=== PATIENT | male | born 1960 | race Hispanic/Latino ===

== ENCOUNTER 2019-05-12 08:56 | Outpatient (CLI) | payer OTHER ==
--- NOTE | 2019-05-12 10:06 | XRay Report ---
LEFT KNEE 2 VIEWS INDICATION: Left knee pain. COMPARISON: 02/19/2018 FINDINGS: Advanced tricompartmental degenerative changes again noted, greatest at the medial tibiofemoral ebony rtment. Collapse/depression along the medial tibial plateau appears slightly increased but does not a ppear acute. There is slight lateral subluxation of the tibial plateau with respect to the distal fem ur which is slightly increased as well. No acute, displaced fracture is seen. There is a small joint effusion. IMPRESSION: 1. 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 These findings have progressed since the prior exam from 2018. RIGHT ANKLE 2 VIEWS INDICATION: ankle pain. COMPARISON: No relevant prior imaging study available. FINDINGS: No acute, displaced fracture is seen. There is advanced osteoarthrosis at the tibiotalar articulation with [id number] appearance medially and subchondral sclerosis and cystlike change. There is slight tilt of the talar dome respect to the tibial plafond. IMPRESSION: 1. Advanced osteoarthrosis of the tibiotalar articulation, as above. Signer Name: Rahul Street MD Signed: 05/12/2019 10:02 AM Workstation Name: [id number]
--- NOTE | 2019-05-12 10:06 | XRay Report ---
LEFT KNEE 2 VIEWS INDICATION: Left knee pain. COMPARISON: 02/19/2018 FINDINGS: Advanced tricompartmental degenerative changes again noted, greatest at the medial tibiofemoral ebony rtment. Collapse/depression along the medial tibial plateau appears slightly increased but does not a ppear acute. There is slight lateral subluxation of the tibial plateau with respect to the distal fem ur which is slightly increased as well. No acute, displaced fracture is seen. There is a small joint effusion. IMPRESSION: 1. 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 These findings have progressed since the prior exam from 2018. RIGHT ANKLE 2 VIEWS INDICATION: ankle pain. COMPARISON: No relevant prior imaging study available. FINDINGS: No acute, displaced fracture is seen. There is advanced osteoarthrosis at the tibiotalar articulation with [id number] appearance medially and subchondral sclerosis and cystlike change. There is slight tilt of the talar dome respect to the tibial plafond. IMPRESSION: 1. Advanced osteoarthrosis of the tibiotalar articulation, as above. Signer Name: Rahul Street MD Signed: 05/12/2019 10:02 AM Workstation Name: [id number]
== END 2019-05-12 08:57 | disposition home or self-care (01) ==
LOC: XRAY 08:56
PROVIDERS: ATTEND Internal Medicine
DX: S83.142A Lateral subluxation of proximal end of tibia, left knee, initial encounter (principal); M17.12 Unilateral primary osteoarthritis, left knee; M19.071 Primary osteoarthritis, right ankle and foot; M25.462 Effusion, left knee; X58.XXXA Exposure to other specified factors, initial encounter; Y93.89 Activity, other specified; Y92.89 Other specified places as the place of occurrence of the external cause; Y99.8 Other external cause status

== ENCOUNTER 2020-06-11 10:32 | Outpatient (CLI) | payer OTHER ==
--- NOTE | 2020-06-11 12:21 | XRay Report ---
LEFT ANKLE AP AND LATERAL VIEWS INDICATION: LEFT ANKLE PAIN. COMPARISON: No relevant prior imaging study available. FINDINGS: No displaced fracture is seen. There is subtle linear sclerosis within the calcaneus which could be d ue to stress. This is of uncertain chronicity. Calcaneal enthesopathy is seen at the plantar fascia a ttachment. There is mild ankle/hindfoot degenerative change. No significant soft tissue swelling. IMPRESSION: 1. Subtle linear sclerosis in the calcaneus is of uncertain chronicity. This could be related to stre ss. 2. Additional incidental findings as above. Signer Name: Rahul Street MD Signed: 06/11/2020 12:16 PM Workstation Name: [id number]
--- NOTE | 2020-06-11 12:22 | XRay Report ---
CLINICAL DATA: LEFT HIP PAIN TECHNICAL DATA: Two views were obtained, AP pelvis and lateral FINDINGS: There is no acute fracture or dislocation. The visualized joint spaces are normal. IMPRESSION: No acute radiographic abnormality. Signer Name: Isaias Francisco MD Signed: 06/11/2020 12:18 PM Workstation Name: [id number]
--- NOTE | 2020-06-11 12:22 | XRay Report ---
Lumbar spine 3 views INDICATION: Low back pain IMPRESSION: Prominent disc osteophyte complex present at T12-L1. Mild neural foraminal stenosis prese nt at L5-S1 secondary to discogenic and facet arthropathy. Signer Name: Elias Hernandez MD Signed: 06/11/2020 12:18 PM Workstation Name: [id number]
== END 2020-06-11 10:33 | disposition home or self-care (01) ==
LOC: XRAY 10:32
PROVIDERS: ATTEND Internal Medicine
DX: M48.061 Spinal stenosis, lumbar region without neurogenic claudication (principal); M47.816 Spondylosis without myelopathy or radiculopathy, lumbar region; M25.78 Osteophyte, vertebrae; M19.072 Primary osteoarthritis, left ankle and foot; M25.552 Pain in left hip
CPT/HCPCS: 72100

== ENCOUNTER 2020-08-16 16:19 | Emergency (ER) | payer MEDICAID, OTHER ==
[2020-08-16 16:49] VITALS: BP 140/97
--- NOTE | 2020-08-16 18:04 | Emergency Department Report ---
ED ENT HPI - General Chief complaint: Sore Throat Stated complaint: THROAT INFECTION Time Seen by Provider: 08/16/20 18:01 Source: patient Mode of arrival: Ambulatory Limitations: No Limitations - History of Present Illness Initial comments: pt is a 59-year-old male presents emergency with complaints of a sore throat that began 3 days ago. He has associated discomfort with swallowing but is still able to swallow and tolerate his secretions. He reports that he also bit his tongue a couple of days ago. He denies any fever, nausea, vomiting, diarrhe a, shortness of breath. He denies any sick contacts. No past medical history. No allergies to medications. - Related Data Previous Rx's Medication Instructions Recorded Last Taken Type Acetaminophen/Codeine [Tylenol 1 tab PO Q6H PRN #12 tab 02/19/18 Unknown Rx /Codeine # 3 tab] Cyclobenzaprine [Flexeril] 10 mg PO TID PRN #30 tablet 02/19/18 Unknown Rx Menthol/Camphor [Volin [place] 1 applicatio TP QID PRN #1 tube 02/19/18 Unknown Rx Ointment] Naproxen 500 mg PO BID PRN #30 tablet 02/19/18 Unknown Rx Nystas/Diphen/Xyl Visc/Mylanta 30 ml MM Q4H PRN #300 ml 08/16/20 Unknown Rx [Magic Mouthwash] Allergies Allergy/AdvReac Type Severity Reaction Status Date / Time No Known Allergies Allergy Verified 08/16/20 16:45 ED Dental HPI - General Chief complaint: Sore Throat Stated complaint: THROAT INFECTION Time Seen by Provider: 08/16/20 18:01 Source: patient Mode of arrival: Ambulatory Limitations: No Limitations - Related Data Previous Rx's Medication Instructions Recorded Last Taken Type Acetaminophen/Codeine [Tylenol 1 tab PO Q6H PRN #12 tab 02/19/18 Unknown Rx /Codeine # 3 tab] Cyclobenzaprine [Flexeril] 10 mg PO TID PRN #30 tablet 02/19/18 Unknown Rx Menthol/Camphor [Volin [place] 1 applicatio TP QID PRN #1 tube 02/19/18 Unknown Rx Ointment] Naproxen 500 mg PO BID PRN #30 tablet 02/19/18 Unknown Rx Nystas/Diphen/Xyl Visc/Mylanta 30 ml MM Q4H PRN #300 ml 08/16/20 Unknown Rx [Magic Mouthwash] Allergies Allergy/AdvReac Type Severity Reaction Status Date / Time No Known Allergies Allergy Verified 08/16/20 16:45 ED Review of Systems ROS: Stated complaint: THROAT INFECTION Other details as noted in HPI Comment: All other systems reviewed and negative ED Past Medical Hx - Past Medical History Previous Medical History?: No - Surgical History Additional Surgical History: KNEE /ANKLE - Social History Smoking Status: Current Every Day Smoker Substance Use Type: None - Medications Home Medications: Home Medications Medication Instructions Recorded Confirmed Last Taken Type Acetaminophen/Codeine [Tylenol 1 tab PO Q6H PRN #12 tab 02/19/18 Unknown Rx /Codeine # 3 tab] Cyclobenzaprine [Flexeril] 10 mg PO TID PRN #30 tablet 02/19/18 Unknown Rx Menthol/Camphor [Volin [place] 1 applicatio TP QID PRN #1 tube 02/19/18 Unknown Rx Ointment] Naproxen 500 mg PO BID PRN #30 tablet 02/19/18 Unknown Rx Nystas/Diphen/Xyl Visc/Mylanta 30 ml MM Q4H PRN #300 ml 08/16/20 Unknown Rx [Magic Mouthwash] ED Physical Exam - General Limitations: No Limitations General appearance: alert, in no apparent distress - Head Head exam: Present: atraumatic, normocephalic - Eye Eye exam: Present: normal appearance - ENT ENT exam: Present: normal orophraynx, mucous membranes moist, TM's normal bilaterally, normal external ear exam, other (small shallow ulceration to the right lateral tongue ) - Respiratory Respiratory exam: Present: normal lung sounds bilaterally. Absent: respiratory distress, wheezes, rales, rhonchi, stridor, chest wall tenderness, accessory muscle use, decreased breath sounds, prolonged expiratory - Cardiovascular Cardiovascular Exam: Present: regular rate, normal rhythm, normal heart sounds. Absent: systolic murmur, diastolic murmur, rubs, gallop - Neurological Exam Neurological exam: Present: alert, oriented X3 - Psychiatric Psychiatric exam: Present: normal affect, normal mood - Skin Skin exam: Present: warm, dry, intact ED Course Vital Signs 08/16/20 16:48 Temperature 98.1 F Pulse Rate 77 Respiratory 20 Rate Blood Pressure 140/97 O2 Sat by Pulse 94 Oximetry ED Medical Decision Making - Medical Decision Making pt is a 59-year-old male presents emergency with complaints of a sore throat that began 3 days ago. He has associated discomfort with swallowing but is still able to swallow and tolerate his secretions. He reports that he also bit his tongue a couple of days ago. He denies any fever, nausea, vomiting, diarrhea, shortness of breath. He denies any sick contacts. No past medical history. No allergies to medications. Vitals are stable. On exam:small shallow ulceration to the right lateral tongue, normal posterior oropharynx, no tonsillar hypertrophy or exudates, uvula is midline, no uvular edema or deviation, no trismus, no tongue elevation, no muffled voice, tolerating secretions or any difficulty. Patient given prescription for Magic mouthwash. Advised patient Please use medication as prescribed as needed. May also use Orajel [id number]. Follow-up with your primary care doctor for reexamination. Return to emergency room for any new or worsening symptoms. Critical care attestation.: If time is entered above; I have spent that time in minutes in the direct care of this critically ill patient, excluding procedure time. ED Disposition Clinical Impression: Pain in throat, Tongue ulceration Disposition: DC- TO HOME OR SELFCARE Is pt being admited?: No Does the pt Need Aspirin: No Condition: Stable Instructions: Sore Throat Additional Instructions: Please use medication as prescribed as needed. May also use Orajel [id number]. Follow-up with your primary care doctor for reexamination. Return to emergency room for any new or worsening symptoms. Prescriptions: Nystas/Diphen/Xyl Visc/Mylanta [Magic Mouthwash] 30 ml MM Q4H PRN #300 ml PRN Reason: sore throat Referrals: RAJIV MEEHAN MD [Staff Physician] - 3-5 Days [facility] [Provider Group] - 3-[address] [facility] [Outside] - 3-5 Days [facility] [Outside] - 3-5 Days Time of Disposition: 18:06 Print Language: POLISH
== END 2020-08-16 18:24 | disposition home or self-care (01) ==
LOC: ED 16:19
DX: K14.0 Glossitis (principal); J02.9 Acute pharyngitis, unspecified; F17.200 Nicotine dependence, unspecified, uncomplicated; Z79.899 Other long term (current) drug therapy
CPT/HCPCS: 99282